=== PATIENT | female | born 1980 | race Two or more races ===

== ENCOUNTER 2018-09-30 10:45 | Inpatient (IN) | payer OTHER ==
[~2018-09-30] VITALS: Ht 162.6 cm; Wt 3.6 kg
[2018-10-08] MEDS ORDERED: PRENATAL PLUS1 EAC2 PO (06:30)
== END 2018-10-12 12:27 | disposition home or self-care (01) | DRG 785 ==
LOC: O/R 10-08 06:00 → OB/GYN 10-08 06:00 → LDR 10-08 07:00 → OB/GYN 10-08 13:14
PROVIDERS: ADMIT Specialist
PROC: 4A1HXCZ Monitoring of Products of Conception, Cardiac Rate, External Approach (ICD-10-PCS; 2018-10-08)
PROC: 10D00Z1 Extraction of Products of Conception, Low, Open Approach (ICD-10-PCS; principal; 2018-10-08 07:00)
PROC: 0UB70ZZ Excision of Bilateral Fallopian Tubes, Open Approach (ICD-10-PCS; 2018-10-08 07:00)
DX: O34.211 Maternal care for low transverse scar from previous cesarean delivery (principal); O75.82 Onset (spontaneous) of labor after 37 completed weeks of gestation but before 39 completed weeks gestation, with delivery by (planned) cesarean section; Z3A.38 38 weeks gestation of pregnancy; Z37.0 Single live birth; Z30.2 Encounter for sterilization